=== PATIENT | male | born 2000 | race Caucasian/White ===

== ENCOUNTER 2020-01-18 11:47 | Outpatient (CLI) | payer OTHER, SELFPAY ==
[2020-01-18 12:16] LABS: Hematocrit 43.5 % (40.0-54.0); Hemoglobin 14.4 g/dL (14.0-18.0); Mean Corpuscular HGB Conc 33.1 g/dL (32.0-36.0); Mean Corpuscular Hemoglobin 28.1 pg (27.0-31.0); Mean Corpuscular Volume 84.8 fL (78.0-102.0); Mean Platelet Volume 10.9 fl (8.7-11.0); Platelet Count Result 142 K/mm3 (150-420); Red Blood Count 5.13 M/mm3 (4.70-6.10); Red Cell Distribution Width 13.5 % (11.6-14.4); White Blood Count 13.2 K/mm3 (4.8-10.8)
[2020-01-18 12:22] LABS: Monoscreen Positive (Negative); Negative Monotest Control Negative (Negative); Positive Monotest Control Positive (Positive)
[2020-01-18 12:33] LABS: Band Neutrophils Percent 1 % (0-6); Basophils Percent Manual 0 % (0-1); Eosinophils Percent Manual 0 % (1-6); Lymphocytes Percent Manual 75 % (18-44); Monocytes Absolute Manual 0.26 K/mm3 (0.1-0.90); Monocytes Percent Manual 2 % (3-9); Neutrophils Absolute Manual 3.03 K/mm3 (1.3-6.7); Neutrophils Percent Manual 22 % (46-73); Platelet Estimate Adequate (Adequate); Total Cells Counted 100
[2020-01-18 12:34] LABS: Atypical Lymphocytes Present
== END 2020-01-18 11:48 | disposition home or self-care (01) ==
PROVIDERS: PCP Family Medicine; Visit Provider Family Medicine
DX: J02.9 Acute pharyngitis, unspecified (principal)
CPT/HCPCS: 36415; 85025; 86308; 87081; 87880

== ENCOUNTER 2020-06-28 11:48 | Outpatient (CLI) | payer OTHER, SELFPAY ==
[2020-06-29 13:52] LABS: SARS-CoV-2 RNA PCR Negative
== END 2020-06-28 11:49 | disposition home or self-care (01) ==
LOC: CHSLAB 11:51
PROVIDERS: PCP Family Medicine; Visit Provider Family Medicine
DX: Z20.828 Contact with and (suspected) exposure to other viral communicable diseases (principal)
CPT/HCPCS: 87635; C9803; U0003

== ENCOUNTER 2021-07-23 13:36 | Outpatient (CLI) | payer OTHER, SELFPAY ==
[2021-07-23 14:43] LABS: Influenza A QL RT-PCR Negative (Negative); Influenza B QL RT-PCR Negative (Negative); SARS-CoV-2 RNA PCR Positive (Negative)
== END 2021-07-23 13:37 | disposition home or self-care (01) ==
LOC: CHSLAB 13:39
PROVIDERS: PCP Family Medicine; Visit Provider Family Medicine
DX: U07.1 COVID-19 (principal)
CPT/HCPCS: 87502; C9803; U0003; U0005

== ENCOUNTER 2022-04-23 15:17 | Outpatient (CLI) | payer OTHER, SELFPAY ==
[2022-04-23 15:33] LABS: Basophils Absolute Auto 0.04 K/mm3 (0.00-0.10); Basophils Percent Auto 0.5 % (0.0-1.0); Eosinophils Percent Auto 1.3 % (1.0-6.0); Hematocrit 52.2 % (40.0-54.0); Hemoglobin 17.4 g/dL (14.0-18.0); Immature Granulocyte Absolute 0.02 K/mm3 (0.00-0.00); Immature Granulocyte Percent A 0.3 % (0.0-0.0); Lymphocytes Absolute Auto 1.77 K/mm3 (1.10-4.50); Lymphocytes Percent Auto 22.4 % (18.0-42.0); Mean Corpuscular HGB Conc 33.3 g/dL (32.0-36.0); Mean Corpuscular Hemoglobin 29.9 pg (27.0-31.0); Mean Corpuscular Volume 89.7 fL (78.0-102.0); Mean Platelet Volume 9.9 fl (8.7-11.0); Monocytes Absolute Auto 0.85 K/mm3 (0.10-0.90); Monocytes Percent Auto 10.7 % (2.0-11.0); Neutrophils Absolute Auto 5.1 K/mm3 (1.7-7.2); Neutrophils Percent Auto 64.8 % (50.0-70.0); Platelet Count Result 255 K/mm3 (150-420); Red Blood Count 5.82 M/mm3 (4.70-6.10); Red Cell Distribution Width 12.5 % (11.6-14.4); White Blood Count 7.9 K/mm3 (4.8-10.8)
[2022-04-23 15:35] LABS: Add Urine Microscopic? YES; Appearance Urine Clear (Clear); Bilirubin Urine Negative (Negative); Blood Urine Negative (Negative); Color Urine Light Yellow (Yellow); Glucose Urine UA 1+ (Negative); Ketones Urine Negative (Negative); Leukocyte Esterase Ur Negative (Negative); Nitrate Urine Negative (Negative); Protein Urine Negative (Negative); Urobilinogen Urine 0.2 mg/dL (0.2-1.0)
[2022-04-23 15:50] LABS: RBC Urine None seen /hpf (0-2); WBC Urine None seen /hpf (0-3)
[2022-04-23 15:51] LABS: Bacteria Urine None seen /hpf; Squamous Epithelial Cell Urine Rare /hpf (Few)
[2022-04-23 16:08] LABS: RFT Charge Test YES; Rheumatoid Factor Screen Positive (Negative)
[2022-04-23 16:20] LABS: Alanine Aminotransferase 48 U/L (16-63); Albumin Level 4.5 g/dL (3.4-5.0); Alkaline Phosphatase 74 U/L (46-116); Anion Gap 10 mmol/L (8-16); Aspartate Amino Transferase 20 U/L (15-37); Bilirubin,Total 0.3 mg/dL (0.00-1.00); Blood Urea Nitrogen 13 mg/dL (7-18); Calcium 9.5 mg/dL (8.5-10.1); Carbon Dioxide 29 mmol/L (21-32); Chloride 102 mmol/L (98-108); Estimated Glomerular Filt Rate > 60; Glucose 99 mg/dL (70-99); Osmolality Calculated 292 mOsm/kg (285-295); Potassium 3.8 mmol/L (3.5-5.1); Sodium 141 mmol/L (136-145); Thyroid Stimulating Hormone 1.82 uIU/mL (0.36-3.74)
[2022-04-23 16:21] LABS: CRP < 0.2 mg/dL (0.0-0.9)
[2022-04-23 16:42] LABS: Erythrocyte Sedimentation Rate 2 mm/hr (0-15)
[2022-04-29 19:11] LABS: ANA Cascade Screen Negative (Negative)
== END 2022-04-23 15:18 | disposition home or self-care (01) ==
LOC: CHSLAB 15:20
PROVIDERS: PCP Family Medicine; Visit Provider Family Medicine
DX: R53.83 Other fatigue (principal)
CPT/HCPCS: 36415; 80053; 81001; 84443; 85025; 85652; 86038; 86140; 86430; 86431

== ENCOUNTER 2024-09-21 09:12 | Outpatient (CLI) | payer OTHER, SELFPAY | END 2024-09-21 09:13 | disposition home or self-care (01) | LOC: CHSCARD 09:17 | PROVIDERS: PCP Physician Assistant; Visit Provider Physician Assistant | DX: R06.02 Shortness of breath (principal) | CPT/HCPCS: 94060; 94726; 94729 ==

== ENCOUNTER 2025-09-24 07:17 | Outpatient (CLI) | payer OTHER, SELFPAY ==
--- OUTSIDE RECORDS SUMMARY | 2025-09-24 07:23 | XMS_ITS | Clinical Summary ---
Author Organization [facility] Address [address] [place] [address] Care Team Providers Care Form Grader Name Role Phone Bulmaro Huber MD Primary Care Provider [phone] Social History Tobacco Use Types Packs/Day Years Used Date Smoking Tobacco: Never Assessed Sex and Gender Information Value Date Recorded Sex Assigned at Not on file Legal Sex Male 5:09 PM [employer] Gender Identity Not on file Sexual Orientation Not on file Plan of Treatment Health Maintenance Due Date Last Done Comments Annual Physical 2003 HPV Vaccines (1 - Male 3-dose series) 2015 Hepatitis C 2018 DTaP, Tdap and Td Vaccines (7 - Td or Tdap) 05/25/2022 05/25/2012, 05/12/2006, 05/25/2002, Additional history exists COVID-19 Vaccine (2024- season) 2025 Influenza Adult (#1) 2025 Hepatitis B Vaccines Completed 02/01/2002, 03/22/2001, 01/25/2001 Meningococcal Vaccine Completed 05/03/2017, 012 Hepatitis A Vaccines Aged Out No long er eligible based on patient's age to complete this topic Meningococcal B Vaccine Aged Out No l onger eligible based on patient's age to complete this topic Pneumococcal Vaccine: Pediatrics (0 to 5 Years) and At-Risk Patients (6 to 49 Years) Aged Out No longer eligible based on patient's age to complete this topic RSV Immunizations Under 20 Months Aged Out No longer eligible based on patient's age to complete this topic Insurance [facility] Care Teams Form Grader Relationship Specialty Start Date End Date Bulmaro Huber MD [address] [facility] [address] [place] [id number] PCP - General FAMILY PRACTICE 09/11/24
[2025-09-24 07:50] LABS: Alanine Aminotransferase 58 U/L (6-50); Albumin Level 5.0 g/dL (3.5-5.1); Alkaline Phosphatase 74 U/L (38-126); Anion Gap 10 mmol/L (4-12); Aspartate Amino Transferase 32 U/L (17-59); Bilirubin,Total 0.7 mg/dL (0.2-1.3); Blood Urea Nitrogen 18 mg/dL (9-20); Calcium 10.1 mg/dL (8.4-10.2); Carbon Dioxide 27 mmol/L (22-30); Chloride 105 mmol/L (98-107); Cholesterol 235 mg/dL (0-200); Estimated Glomerular Filt Rate > 60; Glucose 98 mg/dL (65-110); HDL Direct 54 mg/dL; Osmolality Calculated 295 mOsm/kg (285-295); Potassium 4.5 mmol/L (3.4-5.0); Sodium 142 mmol/L (137-145); Total Protein 8.2 g/dL (6.3-8.2); Triglycerides 133 mg/dL (<150)
[2025-09-24 07:54] LABS: Hemoglobin A1C 5.0 % (<5.7)
== END 2025-09-24 07:18 | disposition home or self-care (01) ==
PROVIDERS: PCP Family Medicine; Visit Provider Family Medicine
DX: Z83.3 Family history of diabetes mellitus (principal)
CPT/HCPCS: 36415; 80053; 80061; 83036